=== PATIENT | female | born 2000 | race Two or more races ===

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

== ENCOUNTER 2019-02-04 15:37 | Outpatient (CLI) | END 2019-02-04 15:53 | disposition short-term general hospital (02) | LOC: AMBL 15:37 | PROVIDERS: ATTEND Emergency Medicine | DX: R56.9 Unspecified convulsions (principal); R41.82 Altered mental status, unspecified ==

== ENCOUNTER 2019-04-29 17:42 | Emergency (ER) ==
[2019-04-29 17:50] VITALS: BP 103/64; TEMP 99.8; BMI 24.5
--- NOTE | 2019-04-29 18:11 | ED.PDOC ---
General ED Provider: Dr. SHYANNE VILLANUEVA Chief Complaint: Respiratory Complaint Stated Complaint: Sniffles, congestion, sore throat, lymph glands R side sore Time Seen by Physician: 17:50 Mode of Arrival: Walk-In Information Source: Patient Primary Care Provider: MARY JANE [facility]CANO[facility] Nursing and Triage Documentation Reviewed and Agree: Yes Does patient meet sepsis criteria?: No System Inflammatory Response Syndrome: Not Applicable Sepsis Protocol: For patient's 13 years and over: Temp is 96.8 and below OR 101 and greater Pulse >90 BPM Resp >20/minute Acutely Altered Mental Status Are patient's symptoms suggestive of a new infection, such as: -Pneumonia -Skin, Soft Tissue -Endocarditis -UTI -Bone, Joint Infection -Implantable Device -Acute Abdominal Infection -Wound Infection -Meningitis -Blood Stream Catheter Infection -Unknown Review of Systems - Review Of Systems Constitutional: Reports: Malaise Ears, Nose, Mouth, Throat: Reports: Throat pain (worse on right) Respiratory: Reports: Cough Cardiac: Reports: No symptoms GI: Reports: Vomiting (1 X with cough) All Other Systems: Reviewed and Negative Past Medical History - Past Medical History Previously Healthy: Yes Endocrine: Reports: None Cardiovascular: Reports: None Respiratory: Reports: None Hematological: Reports: None Gastrointestinal: Reports: None Genitourinary: Reports: None Neuro/Psych: Reports: None Musculoskeletal: Reports: Back Pain, Other Cancer: Reports: None Last Menstrual Period: 1 month - Surgical History General Surgical History: Reports: - Family History Family History: Reports: Unknown - Social History Smoking Status: Current every day smoker, Light tobacco smoker Hx Substance Use: No Alcohol Screening: None - Immunizations Influenza Vaccine within 12 Months: No Pneumococcal Vaccine up to Date: No Physical Exam - Physical Exam Appearance: Ill-appearing Ill-appearing: Moderate Pain Distress: None Eyes: SHIRLEY, EOMI ENT: Ears normal, Nose normal Neck: Supple Respiratory: Airway patent, Breath sounds clear, Breath sounds equal, Respirations nonlabored Cardiovascular: RRR, Pulses normal Skin: Warm, Dry, Normal color Neurological: Sensation intact, Motor intact, Alert, Oriented Psychiatric: Affect appropriate, Mood appropriate Critical Care Note - Critical Care Note Total Time (mins): 8 Course - Course Orders, Labs, Meds: Lab Review 04/29/19 18:04 Influ A Molecular Assay Negative by naat Influ B Molecular Assay Negative by naat Orders Category Date Time Status FLU A & B MOLECULAR [FLU A/B MOLECULAR] Stat LAB 04/29/19 18:04 Completed MOLECULAR GROUP A STREP Stat LAB 04/29/19 18:04 Completed Acetaminophen [Tylenol] MEDS 04/29/19 18:34 Discontinued 1,000 mg PO ONCE STA Sodium Chloride 0.9% [Sodium Chloride] 1,000 ml MEDS 04/29/19 18:25 Discontinued IV BOLUS Medications Discontinued Medications Generic Name Dose Route Start Last Admin Trade Name Konrad PRN Reason Stop Dose Admin Acetaminophen 1,000 mg 04/29/19 18:34 04/29/19 18:50 Tylenol PO 04/29/19 18:35 1,000 mg ONCE STA Administration Sodium Chloride 1,000 mls @ 1,000 mls/hr 04/29/19 18:25 Sodium Chloride IV 04/29/19 19:24 BOLUS STA Vital Signs: Temp Pulse Resp BP Pulse Ox 04/29/19 17:43 99.8 F H 102 H 20 103/64 99 Departure - Departure Time of Disposition: 19:50 Disposition: HOME SELF-CARE Discharge Problem: Viral pharyngitis Instructions: Pharyngitis (ED) Condition: Stable Pt referred to PMD for follow-up: Yes (Call for appointment) IPMP verified?: No (not applicable) Additional Instructions: Keep well hydrated; follow up with primary care as needed. Allergies/Adverse Reactions: Allergies Penicillins Adverse Reaction (Unknown, Verified 04/29/19 17:50) Difficulty Breathing FAMILY HAS TOLD PT SHE IS ALLERGIC TO PCN AND MADE HER THROAT CLOSE UP WHEN SHE WAS SMALL. amoxicillin trihydrate [From Augmentin] Adverse Reaction (Verified 04/29/19 17: 50) Nausea codeine [From Tylenol-Codeine #3] Adverse Reaction (Verified 04/29/19 17:50) potassium clavulanate [From Augmentin] Adverse Reaction (Verified 04/29/19 17:50 ) tramadol Adverse Reaction (Verified 04/29/19 17:50) Home Medications: Ambulatory Orders Acetaminophen [Tylenol] 500 mg PO Q6H PRN 11/19/16 Disposition Discussed With: Patient
[2019-04-29] MEDS ORDERED: SODIUM CHLORIDE 1,000 ML IV STA (18:25)
[2019-04-29] MEDS ORDERED: TYLENOL PO STA (18:34)
== END 2019-04-29 20:23 | disposition home or self-care (01) ==
LOC: ED 17:42
DX: J02.9 Acute pharyngitis, unspecified (principal); F17.210 Nicotine dependence, cigarettes, uncomplicated
CPT/HCPCS: 87502; 87651; 99283